=== PATIENT | female | born 1940 | race Asian ===

== ENCOUNTER 2023-09-11 19:02 | Inpatient (IN) | payer MEDICARE, OTHER ==
[~2023-09-11] VITALS: Ht 157.5 cm; Wt 59.0 kg
[2023-09-11 20:07] LABS: BASOPHILS % (AUTO) 0.6 % (0.0-2.0); EOSINOPHILS % (AUTO) 0.3 % (0.0-6.0); HEMATOCRIT 40 % (33-45); HEMOGLOBIN 13.1 g/dL (11.5-14.8); MEAN CORPUSCULAR HEMOGLOBIN 33 PG (26.0-33.0); MEAN CORPUSCULAR HGB CONC 33 g/dl (31.0-36.0); MEAN CORPUSCULAR VOLUME 101 fL (82-100); MONOCYTES # (AUTO) 0.3 K/uL (0.1-1.30); MONOCYTES % (AUTO) 7.6 % (2.0-12.0); NEUTROPHILS # (AUTO) 2.9 K/uL (1.8-8.9); NEUTROPHILS % (AUTO) 67.5 % (43.0-81.0); PLATELET COUNT (AUTO) 226 K/uL (150-450); RED BLOOD CELL COUNT(AUTO) 3.92 MIL/uL (4.0-5.2); RED CELL DISTRIBUTION WIDTH 14.6 % (11.5-15.0); WHITE BLOOD COUNT (AUTO) 4.4 K/uL (4.3-11.0)
[2023-09-11 20:23] LABS: CALCIUM, SERUM 9.7 mg/dL (8.5-10.1); CARBON DIOXIDE 28 mmol/L (21-32); CHLORIDE 103 mmol/L (98-107); CREATININE 0.8 mg/dL (0.6-1.3); GLUCOSE 88 mg/dL (74-106); POTASSIUM 4.5 mmol/L (3.5-5.1); SODIUM SERUM 138 mmol/L (136-145); UREA NITROGEN, BLOOD 15 mg/dL (7-18)
[2023-09-11 20:28] LABS: ALANINE AMINOTRANSFERASE 12 U/L (12-78); ALBUMIN 3.9 g/dL (3.4-5.0); ALKALINE PHOSPHATASE 160 U/L (46-116); ASPARTATE AMINOTRANSFERASE 15 U/L (15-37); BILIRUBIN,DIRECT 0.2 mg/dL (0.0-0.2); BILIRUBIN,TOTAL 0.6 mg/dL (0.2-1.0); TOTAL PROTEIN, SERUM 7.1 g/dL (6.4-8.2)
[2023-09-11 20:30] LABS: ACETAMINOPHEN 0 ug/ml (10-30); ALCOHOL, BLOOD < 3 mg/dL (0-10); SALICYLATE < 0.2 mg/dL (2.8-20.0)
[2023-09-11 21:32] LABS: APPEARANCE,URINE CLEAR (CLEAR); BILIRUBIN,URINE NEGATIVE (NEGATIVE); BLOOD, URINE NEGATIVE Ery/uL (NEGATIVE); COLOR,URINE YELLOW (YELLOW); KETONES,URINE 1+ mg/dL (NEGATIVE); LEUKOCYTE ESTERASE ,URINE 2+ (NEGATIVE); NITRITE, URINE NEGATIVE (NEGATIVE); PH,URINE 6.5 (5.0-8.0); PROTEIN,URINE NEGATIVE (NEGATIVE); UGLUCOSE NEGATIVE (NEGATIVE); UROBILINOGEN,URINE 0.2 EU/dL (0.2)
[2023-09-11 21:39] LABS: AMPHETAMINE, URINE NEGATIVE (NEGATIVE); BARBITURATE, URINE NEGATIVE (NEGATIVE); BENZODIAZEPINE, URINE NEGATIVE (NEGATIVE); CANNABINOID, URINE NEGATIVE (NEGATIVE); COCCAINE, URINE NEGATIVE (NEGATIVE); OPIATE, URINE NEGATIVE (NEGATIVE); PHENCYCLIDINE SCREEN,URINE NEGATIVE (NEGATIVE)
[2023-09-11 21:58] LABS: ADD URINE CULTURE YES; BACTERIA,URINE Moderate /HPF (None Seen); SQUAMOUS EPITHELIAL CELL,UR Moderate /HPF (None Seen)
[2023-09-11 21:59] LABS: MUCUS,URINE Many /LPF (None Seen)
[2023-09-12] MEDS ORDERED: LORAZEPAM 0.5 MG TABLET PO PRN (01:30)
[2023-09-12] MEDS ORDERED: BLOOD SUGAR DIAGNOSTIC 1 EACH STRIP IN ONE (01:30)
[2023-09-12] MEDS ORDERED: TEMAZEPAM 7.5 MG CAPSULE PO PRN (01:30)
[2023-09-12] MEDS ORDERED: ACETAMINOPHEN 325 MG TABLET PO PRN (01:30)
[2023-09-12] MEDS ORDERED: MAG HYDROX/AL HYDROX/SIMETH 30 ML UDC PO PRN (01:30)
[2023-09-12] MEDS ORDERED: MAGNESIUM HYDROXIDE 30 ML UDC PO PRN (01:30)
[2023-09-12] MEDS ORDERED: ATOR10TA PO (02:14)
[2023-09-12] MEDS ORDERED: RIVA10TA PO (02:14)
[2023-09-12] MEDS ORDERED: FERR325T23 PO (02:14)
[2023-09-12] MEDS ORDERED: DOCU-141 PO (02:14)
[2023-09-12] MEDS ORDERED: ASCO500T21 PO (02:14)
[2023-09-12] MEDS ORDERED: LEVO50TA66 PO (02:14)
[2023-09-12] MEDS ORDERED: AMIO100T4 PO (02:14)
[2023-09-12] MEDS ORDERED: HYDR-4303 PO (02:14)
[2023-09-12] MEDS ORDERED: DEXL60CA3 PO (02:14)
[2023-09-12] MEDS ORDERED: METO25TA6 PO (02:14)
[2023-09-12] MEDS ORDERED: ESCI10TA PO (02:14)
[2023-09-12 08:00] VITALS: BP_SYST 130; BP_SYST 98; BP_DIAS 58; BP_DIAS 70; TEMP 97.9; O2SAT 97; O2SAT 98
[2023-09-12] MEDS: LEVOTHYROXINE SODIUM 50 MCG TABLET PO SCH (08:28)
[2023-09-12 08:36] LABS: CREATININE 0.9 mg/dL (0.6-1.3)
[2023-09-12 08:42] LABS: CHOLESTEROL 166 mg/dL (<200); HDL CHOLESTEROL 80 mg/dL (40-60); LDL 70 mg/dL (0-99); TRIGLYCERIDES 60 mg/dL (30-150)
[2023-09-12] MEDS: METOPROLOL TARTRATE 25 MG TABLET PO SCH ×2 (08:47→21:00)
[2023-09-12] MEDS: FERROUS SULFATE (325 MG) 325 MG/TAB TABLET PO SCH (08:47)
[2023-09-12] MEDS: ASCORBIC ACID 500 MG TABLET PO SCH (08:47)
[2023-09-12] MEDS: NITROFURANTOIN/MONOHYDRATE MACROCRYSTALS 100 MG CAPSULE PO SCH ×2 (08:48→21:00)
[2023-09-12] MEDS: DOCUSATE SODIUM 100 MG CAPSULE PO SCH ×2 (08:48→17:00)
[2023-09-12] MEDS: AMIODARONE HCL 200 MG TABLET PO SCH (08:49)
[2023-09-12] MEDS: RIVAROXABAN 15 MG TABLET PO SCH (09:00)
[2023-09-12] MEDS ORDERED: OLANZAPINE 10 MG VIAL IM ONE (11:30)
[2023-09-12] MEDS: OLANZAPINE 2.5 MG TABLET PO SCH ×2 (13:00→17:00)
[2023-09-12 16:00] VITALS: BP 135/91; TEMP 98.2; O2SAT 98
[2023-09-12] MEDS: CEPHALEXIN MONOHYDRATE 500 MG CAPSULE PO SCH (17:48)
[2023-09-12 20:51] VITALS: BP 115/69; TEMP 98; O2SAT 98
[2023-09-12] MEDS: DIVALPROEX SODIUM 125 MG CAP.SPRINK PO SCH (21:00)
[2023-09-12] MEDS: ATORVASTATIN 10 MG TABLET PO SCH (22:00)
[2023-09-13] MEDS: CEPHALEXIN MONOHYDRATE 500 MG CAPSULE PO SCH ×4 (06:00→17:06)
[2023-09-13] MEDS: LEVOTHYROXINE SODIUM 50 MCG TABLET PO SCH (07:30)
[2023-09-13] MEDS: NITROFURANTOIN/MONOHYDRATE MACROCRYSTALS 100 MG CAPSULE PO SCH ×2 (09:00→21:00)
[2023-09-13] MEDS: RIVAROXABAN 15 MG TABLET PO SCH (09:00)
[2023-09-13] MEDS: METOPROLOL TARTRATE 25 MG TABLET PO SCH ×2 (09:00→21:00)
[2023-09-13] MEDS: DIVALPROEX SODIUM 125 MG CAP.SPRINK PO SCH ×2 (09:00→21:43)
[2023-09-13] MEDS: OLANZAPINE 2.5 MG TABLET PO SCH ×3 (09:00→17:00)
[2023-09-13] MEDS: DOCUSATE SODIUM 100 MG CAPSULE PO SCH ×2 (09:00→17:00)
[2023-09-13] MEDS: AMIODARONE HCL 200 MG TABLET PO SCH (09:00)
[2023-09-13] MEDS: FERROUS SULFATE (325 MG) 325 MG/TAB TABLET PO SCH (09:00)
[2023-09-13] MEDS: ASCORBIC ACID 500 MG TABLET PO SCH (09:00)
[2023-09-13] MEDS: ATORVASTATIN 10 MG TABLET PO SCH (21:50)
[2023-09-14] MEDS: CEPHALEXIN MONOHYDRATE 500 MG CAPSULE PO SCH ×5 (05:45→23:50)
[2023-09-14] MEDS: LEVOTHYROXINE SODIUM 50 MCG TABLET PO SCH (07:30)
[2023-09-14] MEDS: ENSURE ENLIVE CHOC 237 ML CAN PO SCH ×2 (08:00→17:00)
[2023-09-14] MEDS: DOCUSATE SODIUM 100 MG CAPSULE PO SCH ×2 (09:00→17:00)
[2023-09-14] MEDS: OLANZAPINE 2.5 MG TABLET PO SCH ×3 (09:00→17:00)
[2023-09-14] MEDS: DIVALPROEX SODIUM 125 MG CAP.SPRINK PO SCH ×2 (09:00→21:56)
[2023-09-14] MEDS: NITROFURANTOIN/MONOHYDRATE MACROCRYSTALS 100 MG CAPSULE PO SCH (09:00)
[2023-09-14] MEDS: RIVAROXABAN 15 MG TABLET PO SCH (09:00)
[2023-09-14] MEDS: AMIODARONE HCL 200 MG TABLET PO SCH (09:00)
[2023-09-14] MEDS: METOPROLOL TARTRATE 25 MG TABLET PO SCH ×2 (09:00→21:00)
[2023-09-14] MEDS: FERROUS SULFATE (325 MG) 325 MG/TAB TABLET PO SCH (09:00)
[2023-09-14] MEDS: ASCORBIC ACID 500 MG TABLET PO SCH (09:00)
[2023-09-14 16:00] VITALS: BP 146/96; TEMP 97.7; O2SAT 98
[2023-09-14 20:12] VITALS: BP 99/70; TEMP 98.2; O2SAT 96
[2023-09-14] MEDS: ATORVASTATIN 10 MG TABLET PO SCH (21:56)
[2023-09-15] MEDS: CEPHALEXIN MONOHYDRATE 500 MG CAPSULE PO SCH ×3 (05:37→17:30)
[2023-09-15] MEDS: LEVOTHYROXINE SODIUM 50 MCG TABLET PO SCH (07:30)
[2023-09-15 08:00] VITALS: BP 113/76; TEMP 97.6; O2SAT 95
[2023-09-15] MEDS: ENSURE ENLIVE CHOC 237 ML CAN PO SCH ×2 (08:00→17:00)
[2023-09-15] MEDS: DOCUSATE SODIUM 100 MG CAPSULE PO SCH ×2 (08:55→17:00)
[2023-09-15] MEDS: AMIODARONE HCL 200 MG TABLET PO SCH (08:55)
[2023-09-15] MEDS: METOPROLOL TARTRATE 25 MG TABLET PO SCH ×2 (08:56→21:48)
[2023-09-15] MEDS: FERROUS SULFATE (325 MG) 325 MG/TAB TABLET PO SCH (08:56)
[2023-09-15] MEDS: OLANZAPINE 2.5 MG TABLET PO SCH ×3 (08:56→17:00)
[2023-09-15] MEDS: RIVAROXABAN 15 MG TABLET PO SCH (08:56)
[2023-09-15] MEDS: DIVALPROEX SODIUM 125 MG CAP.SPRINK PO SCH ×2 (08:56→21:47)
[2023-09-15] MEDS: ASCORBIC ACID 500 MG TABLET PO SCH (08:56)
[2023-09-15 16:00] VITALS: BP 117/73; TEMP 97.4; O2SAT 98
[2023-09-15 20:12] VITALS: BP 116/77; TEMP 97.9; O2SAT 98
[2023-09-15] MEDS: ATORVASTATIN 10 MG TABLET PO SCH (21:48)
[2023-09-16] MEDS: CEPHALEXIN MONOHYDRATE 500 MG CAPSULE PO SCH ×5 (05:17→23:16)
[2023-09-16 08:00] VITALS: BP 96/67; TEMP 97.7; O2SAT 96
[2023-09-16] MEDS: ENSURE ENLIVE CHOC 237 ML CAN PO SCH ×2 (08:12→16:46)
[2023-09-16] MEDS: LEVOTHYROXINE SODIUM 50 MCG TABLET PO SCH (08:14)
[2023-09-16] MEDS: DIVALPROEX SODIUM 125 MG CAP.SPRINK PO SCH ×2 (08:14→21:41)
[2023-09-16] MEDS: OLANZAPINE 2.5 MG TABLET PO SCH ×3 (08:14→16:46)
[2023-09-16] MEDS: FERROUS SULFATE (325 MG) 325 MG/TAB TABLET PO SCH (08:14)
[2023-09-16] MEDS: ASCORBIC ACID 500 MG TABLET PO SCH (08:14)
[2023-09-16] MEDS: METOPROLOL TARTRATE 25 MG TABLET PO SCH ×2 (08:16→21:00)
[2023-09-16] MEDS: DOCUSATE SODIUM 100 MG CAPSULE PO SCH ×2 (08:16→16:46)
[2023-09-16] MEDS: AMIODARONE HCL 200 MG TABLET PO SCH (08:17)
[2023-09-16] MEDS: RIVAROXABAN 15 MG TABLET PO SCH (09:31)
[2023-09-16 16:00] VITALS: BP 99/67; TEMP 97.8; O2SAT 96
[2023-09-16 20:33] VITALS: BP 118/85; TEMP 97.9; O2SAT 94
[2023-09-16] MEDS: ATORVASTATIN 10 MG TABLET PO SCH (21:41)
[2023-09-17] MEDS: CEPHALEXIN MONOHYDRATE 500 MG CAPSULE PO SCH ×2 (06:22→12:57)
[2023-09-17] MEDS: LEVOTHYROXINE SODIUM 50 MCG TABLET PO SCH ×2 (07:30→08:19)
[2023-09-17 08:00] VITALS: BP 122/83; TEMP 97.7; O2SAT 98
[2023-09-17] MEDS: ENSURE ENLIVE CHOC 237 ML CAN PO SCH ×3 (08:00→17:13)
[2023-09-17] MEDS: DIVALPROEX SODIUM 125 MG CAP.SPRINK PO SCH ×3 (08:35→21:06)
[2023-09-17] MEDS: ASCORBIC ACID 500 MG TABLET PO SCH ×2 (08:35→09:00)
[2023-09-17] MEDS: OLANZAPINE 2.5 MG TABLET PO SCH ×4 (08:36→17:12)
[2023-09-17] MEDS: FERROUS SULFATE (325 MG) 325 MG/TAB TABLET PO SCH ×2 (08:36→09:00)
[2023-09-17] MEDS: DOCUSATE SODIUM 100 MG CAPSULE PO SCH ×3 (08:36→17:12)
[2023-09-17] MEDS: AMIODARONE HCL 200 MG TABLET PO SCH ×2 (08:36→09:00)
[2023-09-17] MEDS: METOPROLOL TARTRATE 25 MG TABLET PO SCH ×3 (08:37→21:05)
[2023-09-17] MEDS: RIVAROXABAN 15 MG TABLET PO SCH ×2 (08:41→09:00)
[2023-09-17 16:00] VITALS: BP 100/66; TEMP 97.8; O2SAT 97
[2023-09-17 20:56] VITALS: BP 102/71; TEMP 98; O2SAT 97
[2023-09-17] MEDS: ATORVASTATIN 10 MG TABLET PO SCH (21:06)
[2023-09-18] MEDS: LEVOTHYROXINE SODIUM 50 MCG TABLET PO SCH (07:30)
[2023-09-18 07:31] LABS: BASOPHILS % (AUTO) 0.8 % (0.0-2.0); EOSINOPHILS # (AUTO) 0.1 K/uL (0.0-0.7); EOSINOPHILS % (AUTO) 1.8 % (0.0-6.0); HEMATOCRIT 43 % (33-45); HEMOGLOBIN 14.2 g/dL (11.5-14.8); LYMPHOCYTES # (AUTO) 1.2 K/uL (0.8-4.8); LYMPHOCYTES % (AUTO) 38.4 % (20.0-44.0); MEAN CORPUSCULAR HEMOGLOBIN 34 PG (26.0-33.0); MEAN CORPUSCULAR HGB CONC 33 g/dl (31.0-36.0); MEAN CORPUSCULAR VOLUME 101 fL (82-100); MONOCYTES # (AUTO) 0.4 K/uL (0.1-1.30); MONOCYTES % (AUTO) 12.5 % (2.0-12.0); NEUTROPHILS # (AUTO) 1.5 K/uL (1.8-8.9); NEUTROPHILS % (AUTO) 46.5 % (43.0-81.0); PLATELET COUNT (AUTO) 196 K/uL (150-450); RED BLOOD CELL COUNT(AUTO) 4.24 MIL/uL (4.0-5.2); RED CELL DISTRIBUTION WIDTH 14.8 % (11.5-15.0); WHITE BLOOD COUNT (AUTO) 3.1 K/uL (4.3-11.0)
[2023-09-18] MEDS: ENSURE ENLIVE CHOC 237 ML CAN PO SCH ×2 (07:48→16:29)
[2023-09-18 07:53] LABS: ALBUMIN 3.3 g/dL (3.4-5.0); BILIRUBIN,TOTAL 0.4 mg/dL (0.2-1.0); CALCIUM, SERUM 9.9 mg/dL (8.5-10.1); CREATININE 1.1 mg/dL (0.6-1.3); TOTAL PROTEIN, SERUM 6.4 g/dL (6.4-8.2)
[2023-09-18 08:00] VITALS: BP 93/63; TEMP 97.6; O2SAT 96
[2023-09-18] MEDS: ASCORBIC ACID 500 MG TABLET PO SCH (08:20)
[2023-09-18] MEDS: OLANZAPINE 2.5 MG TABLET PO SCH ×3 (08:20→16:29)
[2023-09-18] MEDS: DIVALPROEX SODIUM 125 MG CAP.SPRINK PO SCH ×3 (08:21→20:38)
[2023-09-18] MEDS: DOCUSATE SODIUM 100 MG CAPSULE PO SCH ×2 (08:21→16:29)
[2023-09-18] MEDS: METOPROLOL TARTRATE 25 MG TABLET PO SCH ×2 (08:21→20:38)
[2023-09-18] MEDS: FERROUS SULFATE (325 MG) 325 MG/TAB TABLET PO SCH (08:21)
[2023-09-18] MEDS: AMIODARONE HCL 200 MG TABLET PO SCH (08:22)
[2023-09-18] MEDS: RIVAROXABAN 15 MG TABLET PO SCH (08:52)
[2023-09-18 16:01] VITALS: BP 93/73; TEMP 97.6; O2SAT 98
[2023-09-18 20:00] VITALS: BP 94/62; TEMP 97.7; O2SAT 95
[2023-09-18] MEDS: ATORVASTATIN 10 MG TABLET PO SCH (21:24)
[2023-09-19] MEDS: LEVOTHYROXINE SODIUM 50 MCG TABLET PO SCH (07:45)
[2023-09-19 08:00] VITALS: BP 100/64; TEMP 98.2; O2SAT 96
[2023-09-19] MEDS: ENSURE ENLIVE CHOC 237 ML CAN PO SCH ×2 (08:00→16:06)
[2023-09-19] MEDS: DIVALPROEX SODIUM 125 MG CAP.SPRINK PO SCH ×3 (08:01→21:29)
[2023-09-19] MEDS: DOCUSATE SODIUM 100 MG CAPSULE PO SCH ×2 (08:01→16:06)
[2023-09-19] MEDS: OLANZAPINE 2.5 MG TABLET PO SCH ×3 (08:02→16:06)
[2023-09-19] MEDS: FERROUS SULFATE (325 MG) 325 MG/TAB TABLET PO SCH (08:02)
[2023-09-19] MEDS: ASCORBIC ACID 500 MG TABLET PO SCH (08:02)
[2023-09-19] MEDS: AMIODARONE HCL 200 MG TABLET PO SCH (08:28)
[2023-09-19] MEDS: METOPROLOL TARTRATE 25 MG TABLET PO SCH ×2 (08:28→21:29)
[2023-09-19] MEDS: RIVAROXABAN 15 MG TABLET PO SCH (08:31)
[2023-09-19 15:11] LABS: APPEARANCE,URINE CLEAR (CLEAR); BILIRUBIN,URINE NEGATIVE (NEGATIVE); BLOOD, URINE NEGATIVE Ery/uL (NEGATIVE); COLOR,URINE YELLOW (YELLOW); KETONES,URINE 1+ mg/dL (NEGATIVE); LEUKOCYTE ESTERASE ,URINE TRACE (NEGATIVE); NITRITE, URINE NEGATIVE (NEGATIVE); PH,URINE 6.5 (5.0-8.0); PROTEIN,URINE TRACE mg/dl (NEGATIVE); UGLUCOSE NEGATIVE (NEGATIVE); UROBILINOGEN,URINE 0.2 EU/dL (0.2)
[2023-09-19 16:00] VITALS: BP 113/74; TEMP 97.8; O2SAT 98
[2023-09-19 17:14] LABS: ADD URINE CULTURE YES; BACTERIA,URINE 2+ /HPF (None Seen); RBC,URINE 0-2 /HPF (0-2)
[2023-09-19 17:15] LABS: MUCUS,URINE Few /LPF (None Seen)
[2023-09-19 20:00] VITALS: BP 109/76; TEMP 97.9; O2SAT 95
[2023-09-19] MEDS: ATORVASTATIN 10 MG TABLET PO SCH (21:29)
[2023-09-20 08:00] VITALS: BP 133/85; TEMP 97.8; O2SAT 98
[2023-09-20] MEDS: DIVALPROEX SODIUM 125 MG CAP.SPRINK PO SCH ×3 (08:08→21:53)
[2023-09-20] MEDS: ASCORBIC ACID 500 MG TABLET PO SCH (08:08)
[2023-09-20] MEDS: DOCUSATE SODIUM 100 MG CAPSULE PO SCH ×2 (08:08→16:19)
[2023-09-20] MEDS: FERROUS SULFATE (325 MG) 325 MG/TAB TABLET PO SCH (08:09)
[2023-09-20] MEDS: OLANZAPINE 2.5 MG TABLET PO SCH ×3 (08:09→16:19)
[2023-09-20] MEDS: METOPROLOL TARTRATE 25 MG TABLET PO SCH ×2 (08:09→21:54)
[2023-09-20] MEDS: AMIODARONE HCL 200 MG TABLET PO SCH (08:10)
[2023-09-20] MEDS: LEVOTHYROXINE SODIUM 50 MCG TABLET PO SCH (08:10)
[2023-09-20] MEDS: RIVAROXABAN 15 MG TABLET PO SCH (08:11)
[2023-09-20] MEDS: ENSURE ENLIVE CHOC 237 ML CAN PO SCH ×2 (08:12→17:32)
[2023-09-20 16:00] VITALS: BP 107/74; TEMP 97.9; O2SAT 98
[2023-09-20 20:00] VITALS: BP 138/79; TEMP 97.4; O2SAT 97
[2023-09-20] MEDS: ATORVASTATIN 10 MG TABLET PO SCH (21:54)
[2023-09-21 08:00] VITALS: BP 96/61; TEMP 98; O2SAT 98
[2023-09-21] MEDS: ASCORBIC ACID 500 MG TABLET PO SCH (08:36)
[2023-09-21] MEDS: FERROUS SULFATE (325 MG) 325 MG/TAB TABLET PO SCH (08:36)
[2023-09-21] MEDS: DOCUSATE SODIUM 100 MG CAPSULE PO SCH ×2 (08:36→16:31)
[2023-09-21] MEDS: ENSURE ENLIVE CHOC 237 ML CAN PO SCH ×2 (08:36→16:31)
[2023-09-21] MEDS: OLANZAPINE 2.5 MG TABLET PO SCH ×3 (08:36→16:31)
[2023-09-21] MEDS: DIVALPROEX SODIUM 125 MG CAP.SPRINK PO SCH ×3 (08:36→21:15)
[2023-09-21] MEDS: LEVOTHYROXINE SODIUM 50 MCG TABLET PO SCH (08:36)
[2023-09-21] MEDS: RIVAROXABAN 15 MG TABLET PO SCH (08:37)
[2023-09-21] MEDS: METOPROLOL TARTRATE 25 MG TABLET PO SCH ×2 (08:37→21:00)
[2023-09-21] MEDS: AMIODARONE HCL 200 MG TABLET PO SCH (08:38)
[2023-09-21 16:00] VITALS: BP 117/74; TEMP 97.4; O2SAT 98
[2023-09-21 20:00] VITALS: BP 97/63; TEMP 98.1; O2SAT 97
[2023-09-21] MEDS: ATORVASTATIN 10 MG TABLET PO SCH (21:16)
[2023-09-22 08:00] VITALS: BP 128/90; TEMP 98; O2SAT 99
[2023-09-22] MEDS: DOCUSATE SODIUM 100 MG CAPSULE PO SCH ×2 (08:28→16:34)
[2023-09-22] MEDS: DIVALPROEX SODIUM 125 MG CAP.SPRINK PO SCH ×3 (08:28→21:48)
[2023-09-22] MEDS: FERROUS SULFATE (325 MG) 325 MG/TAB TABLET PO SCH (08:28)
[2023-09-22] MEDS: OLANZAPINE 2.5 MG TABLET PO SCH ×3 (08:28→16:34)
[2023-09-22] MEDS: LEVOTHYROXINE SODIUM 50 MCG TABLET PO SCH (08:28)
[2023-09-22] MEDS: ASCORBIC ACID 500 MG TABLET PO SCH (08:29)
[2023-09-22] MEDS: METOPROLOL TARTRATE 25 MG TABLET PO SCH ×2 (08:29→21:47)
[2023-09-22] MEDS: AMIODARONE HCL 200 MG TABLET PO SCH (08:29)
[2023-09-22] MEDS: RIVAROXABAN 15 MG TABLET PO SCH (08:33)
[2023-09-22] MEDS: ENSURE ENLIVE CHOC 237 ML CAN PO SCH ×2 (08:37→16:34)
[2023-09-22 16:00] VITALS: BP 123/87; TEMP 98; O2SAT 100
[2023-09-22 20:06] VITALS: BP 82/57; TEMP 97.9; O2SAT 98
[2023-09-22] MEDS: ATORVASTATIN 10 MG TABLET PO SCH (21:48)
[2023-09-23 08:00] VITALS: BP 120/73; TEMP 97.9; O2SAT 98
[2023-09-23] MEDS: OLANZAPINE 2.5 MG TABLET PO SCH ×3 (09:12→17:30)
[2023-09-23] MEDS: LEVOTHYROXINE SODIUM 50 MCG TABLET PO SCH (09:12)
[2023-09-23] MEDS: METOPROLOL TARTRATE 25 MG TABLET PO SCH ×2 (09:12→21:00)
[2023-09-23] MEDS: FERROUS SULFATE (325 MG) 325 MG/TAB TABLET PO SCH (09:12)
[2023-09-23] MEDS: DOCUSATE SODIUM 100 MG CAPSULE PO SCH ×2 (09:13→17:30)
[2023-09-23] MEDS: ASCORBIC ACID 500 MG TABLET PO SCH (09:13)
[2023-09-23] MEDS: AMIODARONE HCL 200 MG TABLET PO SCH (09:13)
[2023-09-23] MEDS: DIVALPROEX SODIUM 125 MG CAP.SPRINK PO SCH ×3 (09:13→21:26)
[2023-09-23] MEDS: ENSURE ENLIVE CHOC 237 ML CAN PO SCH ×2 (09:14→17:25)
[2023-09-23] MEDS: RIVAROXABAN 15 MG TABLET PO SCH (09:16)
[2023-09-23 15:47] VITALS: BP 85/57; TEMP 97.8; O2SAT 100
[2023-09-23] MEDS ORDERED: IV NS 0.9% 500 ML IV ONE (16:00)
[2023-09-23 17:42] VITALS: BP 120/76; TEMP 97.8; O2SAT 100
[2023-09-23 20:19] VITALS: BP 105/62; TEMP 97.8; O2SAT 96
[2023-09-23] MEDS: ATORVASTATIN 10 MG TABLET PO SCH (21:27)
[2023-09-24 08:00] VITALS: BP 105/69; TEMP 98.7; O2SAT 96
[2023-09-24] MEDS: LEVOTHYROXINE SODIUM 50 MCG TABLET PO SCH (08:27)
[2023-09-24] MEDS: OLANZAPINE 2.5 MG TABLET PO SCH ×3 (08:28→16:44)
[2023-09-24] MEDS: DIVALPROEX SODIUM 125 MG CAP.SPRINK PO SCH ×3 (08:28→21:03)
[2023-09-24] MEDS: FERROUS SULFATE (325 MG) 325 MG/TAB TABLET PO SCH (08:28)
[2023-09-24] MEDS: DOCUSATE SODIUM 100 MG CAPSULE PO SCH ×2 (08:29→16:44)
[2023-09-24] MEDS: AMIODARONE HCL 200 MG TABLET PO SCH (08:29)
[2023-09-24] MEDS: ASCORBIC ACID 500 MG TABLET PO SCH (08:29)
[2023-09-24] MEDS: ENSURE ENLIVE CHOC 237 ML CAN PO SCH ×2 (08:30→16:45)
[2023-09-24] MEDS: METOPROLOL TARTRATE 25 MG TABLET PO SCH ×2 (08:30→21:00)
[2023-09-24] MEDS: RIVAROXABAN 15 MG TABLET PO SCH (08:32)
[2023-09-24 16:05] VITALS: BP 92/65; TEMP 97.1; O2SAT 97
[2023-09-24 20:00] VITALS: BP 100/60; TEMP 98.2; O2SAT 96
[2023-09-24] MEDS: ATORVASTATIN 10 MG TABLET PO SCH (21:03)
[2023-09-25 07:47] LABS: BASOPHILS % (AUTO) 0.7 % (0.0-2.0); EOSINOPHILS # (AUTO) 0.1 K/uL (0.0-0.7); EOSINOPHILS % (AUTO) 2.5 % (0.0-6.0); HEMATOCRIT 41 % (33-45); HEMOGLOBIN 13.7 g/dL (11.5-14.8); LYMPHOCYTES # (AUTO) 1.2 K/uL (0.8-4.8); LYMPHOCYTES % (AUTO) 34.1 % (20.0-44.0); MEAN CORPUSCULAR HEMOGLOBIN 33 PG (26.0-33.0); MEAN CORPUSCULAR HGB CONC 33 g/dl (31.0-36.0); MEAN CORPUSCULAR VOLUME 100 fL (82-100); MONOCYTES # (AUTO) 0.5 K/uL (0.1-1.30); MONOCYTES % (AUTO) 13.5 % (2.0-12.0); NEUTROPHILS # (AUTO) 1.7 K/uL (1.8-8.9); NEUTROPHILS % (AUTO) 49.2 % (43.0-81.0); PLATELET COUNT (AUTO) 152 K/uL (150-450); RED BLOOD CELL COUNT(AUTO) 4.11 MIL/uL (4.0-5.2); RED CELL DISTRIBUTION WIDTH 14.3 % (11.5-15.0); WHITE BLOOD COUNT (AUTO) 3.4 K/uL (4.3-11.0)
[2023-09-25 08:00] VITALS: BP 95/59; TEMP 96.7; O2SAT 97
[2023-09-25 08:04] LABS: ALBUMIN 3.2 g/dL (3.4-5.0); BILIRUBIN,TOTAL 0.3 mg/dL (0.2-1.0); CALCIUM, SERUM 9.4 mg/dL (8.5-10.1); CREATININE 0.9 mg/dL (0.6-1.3); POTASSIUM 5.2 mmol/L (3.5-5.1); TOTAL PROTEIN, SERUM 6.4 g/dL (6.4-8.2)
[2023-09-25] MEDS: AMIODARONE HCL 200 MG TABLET PO SCH (09:00)
[2023-09-25] MEDS: METOPROLOL TARTRATE 25 MG TABLET PO SCH ×2 (09:00→20:21)
[2023-09-25] MEDS: RIVAROXABAN 15 MG TABLET PO SCH (09:09)
[2023-09-25] MEDS: ASCORBIC ACID 500 MG TABLET PO SCH (09:09)
[2023-09-25] MEDS: LEVOTHYROXINE SODIUM 50 MCG TABLET PO SCH (09:13)
[2023-09-25] MEDS: FERROUS SULFATE (325 MG) 325 MG/TAB TABLET PO SCH (09:13)
[2023-09-25] MEDS: OLANZAPINE 2.5 MG TABLET PO SCH ×3 (09:13→17:15)
[2023-09-25] MEDS: DIVALPROEX SODIUM 125 MG CAP.SPRINK PO SCH ×3 (09:13→21:16)
[2023-09-25] MEDS: ENSURE ENLIVE CHOC 237 ML CAN PO SCH ×2 (09:15→17:16)
[2023-09-25] MEDS: DOCUSATE SODIUM 100 MG CAPSULE PO SCH ×2 (09:15→17:15)
[2023-09-25 16:00] VITALS: BP 113/75; TEMP 98.2; O2SAT 97
[2023-09-25 20:16] VITALS: BP 100/68; TEMP 97
[2023-09-25] MEDS: ATORVASTATIN 10 MG TABLET PO SCH (21:16)
[2023-09-26 08:04] VITALS: BP 107/74; TEMP 97.9; O2SAT 97
[2023-09-26] MEDS: LEVOTHYROXINE SODIUM 50 MCG TABLET PO SCH (08:21)
[2023-09-26] MEDS: DIVALPROEX SODIUM 125 MG CAP.SPRINK PO SCH (08:26)
[2023-09-26] MEDS: DOCUSATE SODIUM 100 MG CAPSULE PO SCH (08:26)
[2023-09-26 08:28] VITALS: BP 107/74
[2023-09-26] MEDS: METOPROLOL TARTRATE 25 MG TABLET PO SCH (08:28)
[2023-09-26] MEDS: AMIODARONE HCL 200 MG TABLET PO SCH (08:28)
[2023-09-26] MEDS: OLANZAPINE 2.5 MG TABLET PO SCH (08:28)
[2023-09-26] MEDS: FERROUS SULFATE (325 MG) 325 MG/TAB TABLET PO SCH (08:29)
[2023-09-26] MEDS: RIVAROXABAN 15 MG TABLET PO SCH (08:29)
[2023-09-26] MEDS: ASCORBIC ACID 500 MG TABLET PO SCH (08:29)
[2023-09-26] MEDS: ENSURE ENLIVE CHOC 237 ML CAN PO SCH (08:30)
[2023-09-26] MEDS ORDERED: SODIUM POLYSTYRENE SULFONATE 15 G/60 ML BOTTLE PO ONE (13:30)
== END 2023-09-26 12:14 | DRG 885 ==
LOC: ER 19:07 → GPS 09-12 00:38
PROVIDERS: ADMIT Psychiatry & Neurology Psychosomatic Medicine
DX: F39 Unspecified mood [affective] disorder (principal); N18.30 Chronic kidney disease, stage 3 unspecified; I48.20 Chronic atrial fibrillation, unspecified; N39.0 Urinary tract infection, site not specified; F20.9 Schizophrenia, unspecified; F29 Unspecified psychosis not due to a substance or known physiological condition; I12.9 Hypertensive chronic kidney disease with stage 1 through stage 4 chronic kidney disease, or unspecified chronic kidney disease; E78.5 Hyperlipidemia, unspecified; Z20.822 Contact with and (suspected) exposure to COVID-19; G31.84 Mild cognitive impairment of uncertain or unknown etiology; F41.9 Anxiety disorder, unspecified; E03.9 Hypothyroidism, unspecified; M81.0 Age-related osteoporosis without current pathological fracture; B96.20 Unspecified Escherichia coli [E. coli] as the cause of diseases classified elsewhere; K21.9 Gastro-esophageal reflux disease without esophagitis; F32.A Depression, unspecified; D64.9 Anemia, unspecified; R53.1 Weakness; Z73.6 Limitation of activities due to disability; Z79.01 Long term (current) use of anticoagulants; Z79.899 Other long term (current) drug therapy
CPT/HCPCS: 36415; 80048-TC; 80053-TC; 80061-TC; 80076-TC; 80164-TC; 81001; 82565-TC; 82962-TC; 85025-TC; 87086-TC; 97110-TC; 97116-TC; 97530-TC; A4223; C9803; G0480; J3490; J7040